=== PATIENT | female | born 2005 | race Caucasian/White ===

== ENCOUNTER 2025-04-09 03:10 | Observation (INO) ==
[2025-04-09] MEDS: SODIUM CHLORIDE 0.9% 1,000 ML IV ONE (03:36)
[2025-04-09 03:47] LABS: Hematocrit (blood only) 39.7 % (37.0-47.0); Hemoglobin 13.2 g/dl (12.0-16.0); Immature Granulocytes # (auto) 0.05 K/uL (0.01-0.20); Immature Granulocytes % (auto) 0.4 %; Mean Corpuscular Hemoglobin 29.7 pg (25.0-34.0); Mean Corpuscular Volume 89.2 fL (80.0-100.0); Platelet Count 269 K/uL (130-400); RDW Standard Deviation 41.4 fL (36.4-46.3); Red Blood Count 4.45 M/uL (4.20-5.40); White Blood Count 13.77 K/ul (4.8-10.8)
--- NOTE | 2025-04-09 03:51 | Emergency Department Note ---
Impression & Plan Acute appendicitis, Right lower quadrant abdominal pain, Leukocytosis ED Provider Note NAME: MED JO AGE: 19 SEX: F : 2005 ARRIVES VIA: Walk-In INFORMANT: Patient ED PROVIDER(S): Sal Prasad MD CHIEF COMPLAINT: Abdominal pain, nausea. PLAN: Disposition: Admit MEDICAL DECISION MAKING: The patient is a 19-year-old woman with past medical history of ulcerative colitis on mesalamine who presents to the emergency department via walk-in for evaluation of acute onset of periumbilical pain that began around 2 AM this morning and became increasingly severe with associated nausea. She reports she did take some acetaminophen and felt some improvement. She reports a minimal dull pain at this time. She reports that she has never had pain with her history of ulcerative colitis rather this was diagnosed due to bloody diarrhea which she has not had. She denies any urinary symptoms. She denies any fevers. She denies any vomiting. She reports she last ate dinner at 2200. On evaluation the patient is in no acute distress, afebrile with heart in 100s and otherwise stable vital signs. She appears clinically dry. She has mild periumbilical discomfort with point tenderness in the right lower quadrant over McBurney's point. There is no guarding or rebound. WBC 13.7 K with neutrophilia but no left shift. H/H and platelets within normal limits. Chemistry without metabolic acidosis. BUNs/creatinine 21 consistent with patient's clinical dry appearance. Electrolytes and LFTs unremarkable. Lipase normal. hCG negative. ESR and CRP are not elevated. UA demonstrates 1+ bacteria and WBCs albeit with epithelial cells and negative nitrites. CT of the abdomen pelvis was performed and demonstrates mildly enlarged appendix measuring approximately 8 mm in diameter with minimal periappendiceal fat stranding and fluid which is suggestive of early/mild appendicitis given the clinical context of the patient's symptoms and neutrophilia. Cefoxitin ordered. Findings reviewed with the patient and her parents over the phone at the bedside. Case discussed with Dr. Wiseman, general surgery on-call. Further management per general surgery. Triage Nursing notes reviewed and agree them. Prior/external medical records reviewed Vital Signs: reviewed Differential diagnosis: Gastroenteritis, food borne illness, infections, appendicitis, diverticulitis, inflammatory bowel disease, obstruction, GI bleed, biliary pathology, volvulus, as well as other pathologies. ER treatment provided: See below. Diagnostics interpreted by me: Cardiac Monitoring: An order for continuous cardiac monitoring was placed and demonstrated normal sinus rhythm, 80 bpm, no ectopy Laboratory studies: See below Imaging studies: See below Consultation(s): Dr. Wiseman, general surgery HPI: Per MDM. ROS: See above HPI for pertinent positives & negatives. A total of 10 systems reviewed and were otherwise negative. VITALS:See Below PHYSICAL EXAMINATION: GENERAL: Awake, alert, in no distress HENT: Normocephalic, atraumatic. Oropharynx with dry mucous membranes and otherwise unremarkable. EYES: Normal conjunctiva. Sclera non-icteric. NECK: Supple. No nuchal rigidity. FROM. No JVD. RESPIRATORY: Clear to auscultation. CARDIAC: Tachycardic rate, normal rhythm. Extremities warm and well perfused. Pulses equal. ABDOMEN: Soft, non-distended. Mild periumbilical discomfort with point tenderness in the right lower quadrant over McBurney's point. There is no guarding or rebound. MUSCULOSKELETAL: Chest examination reveals no tenderness. The back is symmetrical on inspection without obvious abnormality. There is no CVA tenderness to palpation. No joint edema. LOWER EXTREMITIES: Calves are equal size bilaterally and non-tender. No edema. No discoloration. NEURO: Normal sensorium. No sensory or motor deficits noted. SKIN: No rash or jaundice noted. Sal Prasad MD Past Med/Surg History Problem List (Updated 04/10/25 @ 04:22 by Sal Prasad MD) Leukocytosis (Acute) Right lower quadrant abdominal pain (Acute) Acute appendicitis (Acute) Ulcerative colitis Colitis Encounter for pre-operative examination BRBPR (bright red blood per rectum) Medical History Ulcerative colitis Surgical History History of colonoscopy History of placement of ear tubes [place] teeth extracted Family History Denies family history of Crohn's disease Colorectal cancer Ulcerative colitis Social History Smoking Status: Never smoker Second Hand Exposure: No; Do You Dip or Chew Tobacco: No; Hx Alcohol Use: No Hx Substance Use: No Preferred Language: Mohawk Communication Ability: Effective Visual Impairment: No Limitations Hearing Ability: Normal Check Pilot Required: No Beliefs That Will Affect Care: None marital status: Single Current Living Situation: Family Current Living Situation Comment: roommates current occupational status: student current occupation: [employer] Feels Safe at Home: Yes Safety Concerns: Feels Safe At This Time Assistive Devices: None Allergies Allergies Allergy/AdvReac Type Severity Reaction Status Date / Time adhesive Allergy Mild Redness of Verified 04/09/25 08:05 Skin Home Meds Home Medications Medication Instructions Recorded Confirmed norethindrone acetate 1.5 1 tab PO HS 11/15/23 04/09/25 mg-ethinyl estradiol 30 mcg tablet (Aurovela) Previous Rx's Medication Instructions Recorded mesalamine 1.2 gram tablet,delayed 2.4 g (2 x 1.2 gram) PO BID 90 12/29/24 release days #360 tabs Results & Data (ED) Vital Signs Vital Signs - 24 hr 04/09/25 04:30 04/09/25 04:30 04/09/25 04:30 Pulse Rate [Apical] Pulse Rate from SpO2 Sensor 96 H Respiratory Rate Blood Pressure 125/84 125/84 Blood Pressure [Left Arm] Blood Pressure Mean 100 100 Blood Pressure Mean [Left Arm] Pulse Oximetry 98 Oxygen Delivery Method 04/09/25 04:32 04/09/25 04:42 04/09/25 04:51 Pulse Rate [Apical] 84 Pulse Rate from SpO2 Sensor 95 H 84 Respiratory Rate 16 Blood Pressure Blood Pressure [Left Arm] 125/84 Blood Pressure Mean Blood Pressure Mean [Left Arm] 97 Pulse Oximetry 99 98 98 Oxygen Delivery Method Room Air 04/09/25 05:00 04/09/25 05:00 04/09/25 05:09 Pulse Rate [Apical] Pulse Rate from SpO2 Sensor 90 Respiratory Rate Blood Pressure 122/75 122/75 Blood Pressure [Left Arm] Blood Pressure Mean 94 94 Blood Pressure Mean [Left Arm] Pulse Oximetry 98 Oxygen Delivery Method 04/09/25 05:12 04/09/25 05:30 04/09/25 05:33 Pulse Rate [Apical] Pulse Rate from SpO2 Sensor 87 81 Respiratory Rate Blood Pressure 121/81 Blood Pressure [Left Arm] Blood Pressure Mean 93 Blood Pressure Mean [Left Arm] Pulse Oximetry 98 97 Oxygen Delivery Method 04/09/25 05:45 04/09/25 06:00 Pulse Rate [Apical] 80 Pulse Rate from SpO2 Sensor 82 Respiratory Rate 16 Blood Pressure Blood Pressure [Left Arm] 125/80 Blood Pressure Mean Blood Pressure Mean [Left Arm] 95 Pulse Oximetry 99 98 Oxygen Delivery Method Room Air Laboratory Data Attestation: I reviewed the patient's lab results. 04/09/25 03:36 04/09/25 03:36 Lab Results 04/09/25 04/09/25 Range/Units 03:36 04:30 WBC 13.77 H (4.8-10.8) K/ul RBC 4.45 (4.20-5.40) M/uL Hgb 13.2 (12.0-16.0) g/dl Hct 39.7 (37.0-47.0) % MCV 89.2 (80.0-100.0) fL MCH 29.7 (25.0-34.0) pg MCHC 33.2 (32.0-36.0) g/dL RDW Std Deviation 41.4 (36.4-46.3) fL RDW Coeff of Stephen 12.6 (11.5-14.5) % Plt Count 269 (130-400) K/uL MPV 9.2 L (9.4-12.4) fL Immature Gran % (Auto) 0.4 % Neut % (Auto) 74.9 % Lymph % (Auto) 18.5 % [place] % (Auto) 4.5 % Eos % (Auto) 1.5 % Baso % (Auto) 0.2 % Neut # (Auto) 10.32 H (1.40-6.50) K/uL Lymph # (Auto) 2.55 (1.20-3.40) K/uL [place] # (Auto) 0.62 H (0.11-0.59) K/uL Eos # (Auto) 0.20 (0.00-0.50) K/uL Baso # (Auto) 0.03 (0.00-0.20) K/uL Immature Gran # (Auto) 0.05 (0.01-0.20) K/uL ESR 16 (0-20) mm/hr Sodium 138 (136-145) mmol/L Potassium 3.8 (3.5-5.1) mmol/L Chloride 107 (98-107) mmol/L Carbon Dioxide 23 (21-32) mmol/L Anion Gap 8 (3-11) BUN 16 (6-23) mg/dl Creatinine 0.73 (0.6-1.2) mg/dl Est Cr Clr Drug Dosing 110.6 ml/min eGFR 120.66 BUN/Creatinine Ratio 21.9 H (10-20) Glucose 91 (70-99(Fasting)) mg/dl Calcium 8.7 (8.6-10.3) mg/dl Total Bilirubin 0.4 (0.2-1.0) mg/dl AST 14 (13-39) U/L ALT 16 (7-52) U/L Alkaline Phosphatase 40 (34-104) U/L C-Reactive Protein < 0.50 (0-0.5) mg/dl Total Protein 6.9 (6.0-8.3) gm/dl Albumin 4.0 (3.4-5.0) gm/dl Globulin 2.9 (2.5-4.0) gm/dl Albumin/Globulin Ratio 1.4 (0.9-2) Lipase 47 (11-82) U/L HCG, Qual Negative (Negative) Urine Color Yellow Urine Appearance Clear (Clear) Urine pH 5.5 (4.5-7.5) Ur Specific [place] > 1.045 H (1.000-1.030) Urine Protein Negative (Negative) Urine Glucose (UA) Negative (Negative) Urine Ketones Negative (Negative) Urine Blood Negative (Negative) Urine Nitrite Negative (Negative) Urine Bilirubin Negative (Negative) Urine Urobilinogen Negative (Negative) Ur Leukocyte Esterase Trace H (Negative) Urine WBC (Auto) 11-20 H (0-5) /hpf Urine RBC (Auto) 0-2 (0-2) /hpf U Hyaline Cast (Auto) 0-2 (0-2) /lpf U Epithel Cells (Auto) 3-5 H (0-2) /hpf Urine Bacteria (Auto) 1+ H (None Seen) Urine Comment Administered Medications Sodium Chloride (Nss) 1,000 mls @ 50 mls/hr IV .Q20H WILLIAM Stop: 04/12/25 05:59 Last Infusion: 04/09/25 14:57 Dose: 50 mls/hr Documented By: Admin: 04/09/25 13:58 Dose: 125 mls/hr Documented By: Infusion: 04/09/25 13:58 Dose: Infused Documented By: Admin: 04/09/25 06:17 Dose: 125 mls/hr Documented By: GREY Acetaminophen (Ofirmev) 1,000 mg in 100 mls @ 400 mls/hr IV Q8H PRN PRN Reason: Pain Stop: 04/12/25 05:51 Last Infusion: 04/09/25 14:42 Dose: Infused Documented By: Admin: 04/09/25 14:25 Dose: 400 mls/hr Documented By: LANI Mesalamine (Mesalamine 1.2 Gm Tabdr) 2.4 gm PO BID WILLIAM Stop: 05/09/25 20:59 Last Admin: 04/09/25 21:40 Dose: 2.4 gm Documented By: MAYTE Morphine Sulfate (Morphine Sulfate 2 Mg/Ml Carp) 2 mg IV Q3H PRN PRN Reason: Pain (1,2,3,4,5) & Pre PT Stop: 04/23/25 07:53 Last Admin: 04/09/25 21:45 Dose: 2 mg Documented By: MAYTE Morphine Sulfate (Morphine Sulfate 4 Mg/Ml 1 Ml Carp\Vial) 4 mg IV Q3H PRN PRN Reason: Pain (6,7,8,9,10) Stop: 04/23/25 07:53 Last Admin: 04/10/25 02:09 Dose: 4 mg Documented By: WILeonardo Drospirenone/Ethinyl Estradiol 3mg-0. 02mg--Non-Formulary Patient's Own Med 1 each PO HS WILLIAM Stop: 05/09/25 20:59 Last Admin: 04/09/25 21:40 Dose: 1 ea Documented By: MAYTE Oxycodone/Acetaminophen (Oxycodone/Acetaminophen 5mg/325mg Tab) 1 tab PO Q4H PRN PRN Reason: MODERATE Pain (4,5,6) & Pre PT Stop: 04/23/25 07:53 Last Admin: 04/09/25 19:28 Dose: 1 tab Documented By: MAYTE Discontinued Medications Bupivacaine HCl/Epinephrine Bitart (Bupivacaine/Epinephrine 0.5% Mpf 1:200,000 30 Ml Vial) Confirm Administered Dose 30 ml .ROUTE .STK-MED ONE Stop: 04/09/25 11:44 Last Admin: 04/09/25 12:36 Dose: 20 ml Documented By: GEN Sodium Chloride (Nss) 1,000 mls @ 999 mls/hr IV .Q1H1M ONE Stop: 04/09/25 04:22 Last Infusion: 04/09/25 04:33 Dose: Infused Documented By: Admin: 04/09/25 03:36 Dose: 999 mls/hr Documented By: ABHINAV Cefoxitin Sodium (Mefoxin) 2,000 mg in 60 mls @ 100 mls/hr IV NOW STA Stop: 04/09/25 06:25 Last Infusion: 04/09/25 06:58 Dose: Infused Documented By: MARY JANE Admin: 04/09/25 06:17 Dose: 100 mls/hr Documented By: GREY Piperacillin Sod/Tazobactam Sod (Zosyn) 4.5 gm in 100 mls @ 200 mls/hr IV ONE ONE; Protocol Stop: 04/09/25 14:29 Last Admin: 04/09/25 14:59 Dose: Not Given Documented By: LANI Ioversol (Optiray 320 100ml) 100 ml IV ONCE ONE Stop: 04/09/25 04:19 Last Admin: 04/09/25 04:19 Dose: 93 ml Documented By: JANET Mari (Oral Contraceptive - Order Awaiting Action) 1 each N/A QS WILLIAM Stop: 05/09/25 15:59 Last Admin: 04/09/25 15:00 Dose: Not Given Documented By: LANI Mari (Mesalamine Dr/Ec 1.2 Gm Tab - Order Awaiting Action) 1 each N/A QS WILLIAM Stop: 05/09/25 15:59 Last Admin: 04/09/25 16:02 Dose: Not Given Documented By: LANI Imaging Data Radiologist's Impression: Abdomen/Pelvis CT 04/09/25 03:50 EXAM: CT abd pelvis IV con only CLINICAL HISTORY: rlq pain, nausea TECHNIQUE: CT of the abdomen and pelvis was performed with contrast, with the following protocol: axial images with, and reconstructed coronal and sagittal images. One of the following dose reduction techniques was utilized for this exam: Automated exposure control, adjustment of the mA and/or kV according to patient size, and use of iterative reconstruction. COMPARISON: No prior studies available for comparison. FINDINGS: Abdomen: Liver: Normal in size, shape, and density. No focal lesions, cysts, or masses were identified. Hepatic vasculature and biliary ducts are unremarkable. Gallbladder and Biliary System: The gallbladder is normal in size and shape. No wall thickening, pericholecystic fluid, or gallstones were identified. The common bile duct is normal in caliber without dilation. Pancreas: Pancreatic head, body, and tail are visualized and appear normal in size and density. No pancreatic masses or calcifications were noted. The pancreatic duct is not dilated. Spleen: Normal in size, shape, and density. No splenic lesions or masses were identified. Appendix: The appendix is mildly enlarged in size, measuring about 8 mm in diameter, with minimal periappendiceal fat stranding and fluid, without an appendicolith. No evidence of appendiceal abscess or perforation. Kidneys and Adrenal Glands: Both kidneys are normal in size, shape, and position. Cortical thickness is within normal limits. No renal calculi or hydronephrosis. Adrenal glands are unremarkable with no evidence of masses or hyperplasia. Pelvis: Urinary Bladder: Normal in contour and wall thickness. No intraluminal lesions identified. Uterus: Normal in size and contour. No masses or abnormal thickening. Ovaries: Not well visualized but no gross abnormalities noted. Vagina: Normal in contour and wall thickness. Cervix: No evidence of mass or abnormal thickening. Peritoneal and Retroperitoneal Structures: No free fluid or abnormal fluid collections were identified within the abdomen or pelvis. No lymphadenopathy was noted. Bowel: The visualized bowel loops are normal in caliber and appearance. 2 capsule-like structures are noted in the stomach and small bowel No evidence of bowel obstruction or wall thickening. Bones and Soft Tissues: Pelvic bones and soft tissues are unremarkable. No fractures or abnormal masses were identified. IMPRESSION: - The appendix is mildly enlarged in size, measuring about 8 mm in diameter, with minimal periappendiceal fat stranding and fluid. Features may suggest early / mild appendicitis, would recommend clinical and lab (neutrophils) count for further evaluation. Electronically signed by Tom Juan 04-09-2025 05:14 AM Discharge Plan Visit Data Chief Complaint: Abdominal Pain Stated Complaint: ABD PAIN ED Provider: Sal Prasad Discharge Problem: Acute appendicitis, Right lower quadrant abdominal pain, Leukocytosis Patient Disposition: Admitted As Inpatient Condition: Fair Discharge Instructions Interventions: ED Discharge Assessment Last Done: 04/09/25 07:47 Discharge Problem: Acute appendicitis Qualifiers: Acute appendicitis type: unspecified acute appendicitis type Qualified Code(s): K35.80 - Unspecified acute appendicitis Leukocytosis Qualifiers: Leukocytosis type: unspecified Qualified Code(s): D72.829 - Elevated white blood cell count, unspecified
[2025-04-09 04:09] LABS: Alanine Aminotransferase 16 U/L (7-52); Albumin Globulin Ratio 1.4 (0.9-2); Alkaline Phosphatase 40 U/L (34-104); Anion Gap 8 (3-11); Bilirubin,Total 0.4 mg/dl (0.2-1.0); Blood Urea Nitrogen 16 mg/dl (6-23); Calcium 8.7 mg/dl (8.6-10.3); Carbon Dioxide 23 mmol/L (21-32); Chloride 107 mmol/L (98-107); Creatinine Clr Calc Pharmacy 110.6 ml/min; Globulin 2.9 gm/dl (2.5-4.0); Glucose 91 mg/dl (70-99(Fasting)); Lipase 47 U/L (11-82); Potassium 3.8 mmol/L (3.5-5.1); Sodium 138 mmol/L (136-145); Total Protein 6.9 gm/dl (6.0-8.3)
[2025-04-09] MEDS: OPTIRAY 320 100ml IV ONE (04:19)
[2025-04-09 04:23] LABS: Pregnancy Test, Serum Negative (Negative)
[2025-04-09 05:13] LABS: Appearance Urine Clear (Clear); Bacteria Urine Automated 1+ (None Seen); Cast Urine Automated 0-2 /lpf (0-2); Glucose Urine UA Negative (Negative); RBC Urine Automated 0-2 /hpf (0-2)
--- NOTE | 2025-04-09 05:18 | CT Scan Report ---
EXAM: CT abd pelvis IV con only CLINICAL HISTORY: rlq pain, nausea TECHNIQUE: CT of the abdomen and pelvis was performed with contrast, with the following protocol: axial images with, and reconstructed coronal and sagittal images. One of the following dose reduction techniques was utilized for this exam: Automated exposure control, adjustment of the mA and/or kV according to patient size, and use of iterative reconstruction. COMPARISON: No prior studies available for comparison. FINDINGS: Abdomen: Liver: Normal in size, shape, and density. No focal lesions, cysts, or masses were identified. Hepatic vasculature and biliary ducts are unremarkable. Gallbladder and Biliary System: The gallbladder is normal in size and shape. No wall thickening, pericholecystic fluid, or gallstones were identified. The common bile duct is normal in caliber without dilation. Pancreas: Pancreatic head, body, and tail are visualized and appear normal in size and density. No pancreatic masses or calcifications were noted. The pancreatic duct is not dilated. Spleen: Normal in size, shape, and density. No splenic lesions or masses were identified. Appendix: The appendix is mildly enlarged in size, measuring about 8 mm in diameter, with minimal periappendiceal fat stranding and fluid, without an appendicolith. No evidence of appendiceal abscess or perforation. Kidneys and Adrenal Glands: Both kidneys are normal in size, shape, and position. Cortical thickness is within normal limits. No renal calculi or hydronephrosis. Adrenal glands are unremarkable with no evidence of masses or hyperplasia. Pelvis: Urinary Bladder: Normal in contour and wall thickness. No intraluminal lesions identified. Uterus: Normal in size and contour. No masses or abnormal thickening. Ovaries: Not well visualized but no gross abnormalities noted. Vagina: Normal in contour and wall thickness. Cervix: No evidence of mass or abnormal thickening. Peritoneal and Retroperitoneal Structures: No free fluid or abnormal fluid collections were identified within the abdomen or pelvis. No lymphadenopathy was noted. Bowel: The visualized bowel loops are normal in caliber and appearance. 2 capsule-like structures are noted in the stomach and small bowel No evidence of bowel obstruction or wall thickening. Bones and Soft Tissues: Pelvic bones and soft tissues are unremarkable. No fractures or abnormal masses were identified. IMPRESSION: - The appendix is mildly enlarged in size, measuring about 8 mm in diameter, with minimal periappendiceal fat stranding and fluid. Features may suggest early / mild appendicitis, would recommend clinical and lab (neutrophils) count for further evaluation. Electronically signed by Tom Juan 04-09-2025 05:14 AM
[2025-04-09] MEDS ORDERED: ONDANSETRON INJ 2 MG/ML 2 ML VIAL IV PRN ×2 (05:51→07:54)
[2025-04-09] MEDS: cefOXitin 2,000 MG/60 ML BAG IV STA (06:17)
[2025-04-09] MEDS: SODIUM CHLORIDE 0.9% 1,000 ML IV SCH (06:17)
[2025-04-09] MEDS ORDERED: ROCURONIUM BROMIDE 10 MG/ML 5 ML VIAL IV ONE ×2 (08:15→11:44)
[2025-04-09] MEDS ORDERED: DEXAMETHASONE SOD INJ 4 MG/ML VIAL ONE (08:15)
[2025-04-09] MEDS ORDERED: MIDAZOLAM HCL 1 MG/ML 2ML VIAL ONE ×2 (08:15→11:42)
[2025-04-09] MEDS ORDERED: PROPOFOL IV EMULSION 10 MG/ML 20 ML VIAL IV ONE ×2 (08:15→11:43)
[2025-04-09] MEDS ORDERED: LIDOCAINE 2% 2 ML VIAL/AMP(20MG/ML) INFIL ONE ×3 (08:15→11:43)
[2025-04-09] MEDS ORDERED: ONDANSETRON INJ 2 MG/ML 2 ML VIAL ONE (08:15)
--- NOTE | 2025-04-09 09:28 | History & Physical Report ---
Date of Service April 09, 2025 Assessment & Plan (1) Acute appendicitis: Plan: IV abx IVF to OR for lap appendectomy Admission and Anticipated Discharge Date Admission Date: April 09, 2025 History of Present Illness Primary Care Provider: Natalie Dixon This is a 19YO female with past medical history of ulcerative colitis on mesalamine who came to ED with periumbilical pain that now is localized to her RLQ. She has associated nausea but no vomiting. She has never had pain with her UC. She was diagnosed due to bloody diarrhea which she denies. Her WBC 13.[address] scan shows enlarged appendix measuring approximately 8 mm in diameter with minimal periappendiceal fat stranding and fluid which is suggestive of early/mild appendicitis. Allergies Allergy/AdvReac Type Severity Reaction Status Date / Time adhesive Allergy Mild Redness of Verified 04/09/25 08:05 Skin Home Medications Medication Instructions Recorded Confirmed Type norethindrone acetate 1.5 1 tab PO HS 11/15/23 04/09/25 History mg-ethinyl estradiol 30 mcg tablet (Aurovela) mesalamine 1.2 gram tablet,delayed 2.4 g (2 x 1.2 gram) PO BID 90 12/29/2403/31 Rx release days #360 tabs Past Med/Surg History Problem List (Updated 04/09/25 @ 07:20 by Sal Prasad MD) Leukocytosis (Acute) Right lower quadrant abdominal pain (Acute) Acute appendicitis (Acute) Ulcerative colitis Colitis Encounter for pre-operative examination BRBPR (bright red blood per rectum) Medical History Ulcerative colitis Surgical History History of colonoscopy History of placement of ear tubes [place] teeth extracted Family History Denies family history of Crohn's disease Colorectal cancer Ulcerative colitis Social History Smoking Status: Never smoker Second Hand Exposure: No; Do You Dip or Chew Tobacco: No; Hx Alcohol Use: Yes Hx Substance Use: No Preferred Language: Azeri Communication Ability: Effective Visual Impairment: No Limitations Hearing Ability: Normal Research Instructor Required: No Beliefs That Will Affect Care: None marital status: Single Current Living Situation: Other Current Living Situation Comment: roommates current occupational status: student current occupation: [employer] Feels Safe at Home: Yes Assistive Devices: None Review of Systems no fever and no chills no problem reported no problem reported no cough and no dyspnea no chest pain + abdominal pain and + nausea; no vomiting and no change in bowel habits no dysuria no back pain no problem reported no localized weakness and no generalized weakness no behavioral changes no easy bleeding and no easy bruising Physical Exam Constitutional: WD/WN, vitals as above Eyes: no scleral abnormality ENMT: external ear and nose normal, oropharynx normal Neck: trachea midline Respiratory: normal respiratory effort, lungs clear to auscultation Cardiovascular: RRR, no murmur, no edema Gastrointestinal (Abdomen): Inspection/Auscultation: abdomen normal to inspection and normal bowel sounds; abdomen not distended Percussion/Palpation: + abdomen tender, + guarding and abdomen soft; abdomen not rigid Musculoskeletal: Head/Neck/Chest: normocephalic and head atraumatic Skin: no rashes, warm and dry Results & Data Vital Signs (Past 12 Hours) Vital Signs Temp Pulse Pulse Resp BP BP Pulse Ox 04/09/25 08:54 15 04/09/25 08:30 83 16 04/09/25 08:12 74 17 04/09/25 08:05 70 04/09/25 08:00 16 04/09/25 08:00 111/94 04/09/25 08:00 111/94 04/09/25 08:00 111/94 04/09/25 07:51 81 20 04/09/25 07:45 90 15 04/09/25 07:36 72 17 04/09/25 07:21 71 24 04/09/25 07:00 116/76 04/09/25 06:54 99 04/09/25 06:42 99 04/09/25 06:39 99 04/09/25 06:27 99 04/09/25 06:24 125/80 04/09/25 06:24 125/80 04/09/25 06:18 98 04/09/25 06:00 80 16 125/80 98 04/09/25 05:45 99 04/09/25 05:33 97 04/09/25 05:30 121/81 04/09/25 05:12 98 04/09/25 05:09 98 04/09/25 05:00 122/75 04/09/25 05:00 122/75 04/09/25 04:51 98 04/09/25 04:42 98 04/09/25 04:32 84 16 125/84 99 04/09/25 04:30 98 04/09/25 04:30 125/84 04/09/25 04:30 125/84 04/09/25 03:44 75 04/09/25 03:38 100 04/09/25 03:38 79 16 117/78 100 04/09/25 03:15 36.7 C 105 H 20 138/87 99 O2 Del Method 04/09/25 08:54 04/09/25 08:30 04/09/25 08:12 04/09/25 08:05 04/09/25 08:00 04/09/25 08:00 04/09/25 08:00 04/09/25 08:00 04/09/25 07:51 04/09/25 07:45 04/09/25 07:36 04/09/25 07:21 04/09/25 07:00 04/09/25 06:54 04/09/25 06:42 04/09/25 06:39 04/09/25 06:27 04/09/25 06:24 04/09/25 06:24 04/09/25 06:18 04/09/25 06:00 Room Air 04/09/25 05:45 04/09/25 05:33 04/09/25 05:30 04/09/25 05:12 04/09/25 05:09 04/09/25 05:00 04/09/25 05:00 04/09/25 04:51 04/09/25 04:42 04/09/25 04:32 Room Air 04/09/25 04:30 04/09/25 04:30 04/09/25 04:30 04/09/25 03:44 04/09/25 03:38 Room Air 04/09/25 03:38 Room Air 04/09/25 03:15 Room Air Diagnostic Findings EXAM: CT abd pelvis IV con only ADDENDUM: The results were sent successfully via fax at [phone] at 4:30 AM LIFE ENRICHMENT DIRECTOR, 04/09/2025. Electronically signed by Tom Juan 04-09-2025 05:31 AM ADDENDUM END EXAM: CT abd pelvis IV con only CLINICAL HISTORY: rlq pain, nausea TECHNIQUE: CT of the abdomen and pelvis was performed with contrast, with the following protocol: axial images with, and reconstructed coronal and sagittal images. One of the following dose reduction techniques was utilized for this exam: Automated exposure control, adjustment of the mA and/or kV according to patient size, and use of iterative reconstruction. COMPARISON: No prior studies available for comparison. FINDINGS: Abdomen: Liver: Normal in size, shape, and density. No focal lesions, cysts, or masses were identified. Hepatic vasculature and biliary ducts are unremarkable. Gallbladder and Biliary System: The gallbladder is normal in size and shape. No wall thickening, pericholecystic fluid, or gallstones were identified. The common bile duct is normal in caliber without dilation. Pancreas: Pancreatic head, body, and tail are visualized and appear normal in size and density. No pancreatic masses or calcifications were noted. The pancreatic duct is not dilated. Spleen: Normal in size, shape, and density. No splenic lesions or masses were identified. Appendix: The appendix is mildly enlarged in size, measuring about 8 mm in diameter, with minimal periappendiceal fat stranding and fluid, without an appendicolith. No evidence of appendiceal abscess or perforation. Kidneys and Adrenal Glands: Both kidneys are normal in size, shape, and position. Cortical thickness is within normal limits. No renal calculi or hydronephrosis. Adrenal glands are unremarkable with no evidence of masses or hyperplasia. Pelvis: Urinary Bladder: Normal in contour and wall thickness. No intraluminal lesions identified. Uterus: Normal in size and contour. No masses or abnormal thickening. Ovaries: Not well visualized but no gross abnormalities noted. Vagina: Normal in contour and wall thickness. Cervix: No evidence of mass or abnormal thickening. Peritoneal and Retroperitoneal Structures: No free fluid or abnormal fluid collections were identified within the abdomen or pelvis. No lymphadenopathy was noted. Bowel: The visualized bowel loops are normal in caliber and appearance. 2 capsule-like structures are noted in the stomach and small bowel No evidence of bowel obstruction or wall thickening. Bones and Soft Tissues: Pelvic bones and soft tissues are unremarkable. No fractures or abnormal masses were identified. IMPRESSION: - The appendix is mildly enlarged in size, measuring about 8 mm in diameter, with minimal periappendiceal fat stranding and fluid. Features may suggest early / mild appendicitis, would recommend clinical and lab (neutrophils) count for further evaluation. Code Status & VTE Plan VTE Prophylaxis Plan VTE Prophylaxis will be ordered: Yes
[2025-04-09] MEDS ORDERED: ATROPINE SULFATE 0.1 MG/ML 10ML SYR IV PRN (11:36)
[2025-04-09] MEDS ORDERED: HYDROmorphone INJ 2 MG/ML SYR/VIAL IV PRN (11:36)
[2025-04-09] MEDS ORDERED: PROMETHAZINE HCL 6.25 MG in SODIUM CHLORIDE 0.9% 50 ML IV PRN (11:36)
--- NOTE | 2025-04-09 11:48 | Anesthesiology Consultation ---
Date of Service April 09, 2025 Assessment & Plan ASA ASA2 Proposed Anesthesia Anesthesia Type: General Risk / Benefits Reviewed With: PT / POA / Parent / Guardian, Accepts Plan and Informed Consent Obtained History Surgery Operation Date: 04/09/25 08:00 Proposed Procedures p Laparoscopic Appendectomy - Kevin Wiseman MD Height/Weight Height: 5 ft 8 in Weight: 57 kg Allergies Allergy/AdvReac Type Severity Reaction Status Date / Time adhesive Allergy Mild Redness of Verified 04/09/25 08:05 Skin Medications Home Medications Medication Instructions Recorded Confirmed Last Taken norethindrone acetate 1.5 1 tab PO HS 11/15/23 04/09/25 04/08/25 mg-ethinyl estradiol 30 mcg tablet (Aurovela) mesalamine 1.2 gram tablet,delayed 2.4 g (2 x 1.2 gram) PO BID 90 12/29/24 04/09/25 04/08/25 release days #360 tabs Active Medications Generic Name Dose Route Start Last Admin Trade Name Freq PRN Reason Stop Dose Admin Sodium Chloride 1,000 mls @ 125 mls/hr 04/09/25 06:00 04/09/25 06:17 Nss IV 04/12/25 05:59 125 mls/hr .Q8H WILLIAM Administration NPO Date Last Intake of Fluids: 04/08/25 Time Last Intake of Fluids: 23:00 Date Last Intake of Solids: 04/08/25 Time Last Intake of Solids: 22:00 Past Medical History Medical History Ulcerative colitis Exercise / Class Metabolic Activity II 4-5 Yardwork/Stairs/Walk up hill Past Family History Family History Denies family history of Crohn's disease Colorectal cancer Ulcerative colitis Past Surgical History Surgical History History of colonoscopy History of placement of ear tubes [place] teeth extracted Past Anesthesia History No Hx of Anesthesia Complications and No Family Hx of Anesthesia Complications History of PONV No Hx of PONV and No Hx of Motion Sickness Social History Smoking Status: Never smoker Do You Dip or Chew Tobacco: No Hx Alcohol Use: No alcohol intake frequency: a few times a month Hx Substance Use: No substance use type: does not use Physical Exam Vital Signs Last Vital Signs Temp 37.2 C 04/09/25 11:38 Pulse 86 04/09/25 11:38 Resp 16 04/09/25 11:38 BP 111/80 04/09/25 11:38 Pulse Ox 100 04/09/25 11:38 O2 Del Method Room Air 04/09/25 11:38 Constitutional no acute distress ENMT Mouth: no dentition abnormality Thyromental Distance: > or= 3.5 Finger Breadths Mallampati Class: II Neck normal visual inspection Respiratory normal respiratory effort; no respiratory distress Auscultation: lungs clear to auscultation bilaterally Cardiovascular Rate/Rhythm: regular rate and regular rhythm Heart Sounds: no murmur Musculoskeletal Spine: normal cervical ROM Psychiatric Orientation: alert and oriented x 3 Testing Laboratory Results 04/09/25 03:36 04/09/25 03:36 Urine Color Yellow 04/09/25 04:30 Urine Appearance Clear (Clear) 04/09/25 04:30 Urine pH 5.5 (4.5-7.5) 04/09/25 04:30 Ur Specific [place] > 1.045 (1.000-1.030) H 04/09/25 04:30 Urine Protein Negative (Negative) 04/09/25 04:30 Urine Glucose (UA) Negative (Negative) 04/09/25 04:30 Urine Ketones Negative (Negative) 04/09/25 04:30 Urine Nitrite Negative (Negative) 04/09/25 04:30 Ur Leukocyte Esterase Trace (Negative) H 04/09/25 04:30 Urine WBC (Auto) 11-20 /hpf (0-5) H 04/09/25 04:30 Urine RBC (Auto) 0-2 /hpf (0-2) 04/09/25 04:30 U Hyaline Cast (Auto) 0-2 /lpf (0-2) 04/09/25 04:30 U Epithel Cells (Auto) 3-5 /hpf (0-2) H 04/09/25 04:30 Urine Bacteria (Auto) 1+ (None Seen) H 04/09/25 04:30 Day of Procedure Evaluation. Date of Surgery April 09, 2025 Height/Weight Height: 5 ft 8 in Weight: 57 kg Vital Signs Last Vital Signs Temp 37.2 C 04/09/25 11:38 Pulse 86 04/09/25 11:38 Resp 16 04/09/25 11:38 BP 111/80 04/09/25 11:38 Pulse Ox 100 04/09/25 11:38 O2 Del Method Room Air 04/09/25 11:38 Allergies Allergy/AdvReac Type Severity Reaction Status Date / Time adhesive Allergy Mild Redness of Verified 04/09/25 08:05 Skin Medications Home Medications Medication Instructions Recorded Confirmed Last Taken norethindrone acetate 1.5 1 tab PO HS 11/15/23 04/09/25 04/08/25 mg-ethinyl estradiol 30 mcg tablet (Aurovela) mesalamine 1.2 gram tablet,delayed 2.4 g (2 x 1.2 gram) PO BID 12/29/24 04/09/25 04/08/25 release days #360 tabs Active Medications Generic Name Dose Route Start Last Admin Trade Name Freq PRN Reason Stop Dose Admin Sodium Chloride 1,000 mls @ 125 mls/hr 04/09/25 06:00 04/09/25 06:17 Nss IV 04/12/25 05:59 125 mls/hr .Q8H WILLIAM Administration Past Anesthesia History No Hx of Anesthesia Complications and No Family Hx of Anesthesia Complications History of PONV No Hx of PONV and No Hx of Motion Sickness NPO Date Last Intake of Fluids: 04/08/25 Time Last Intake of Fluids: 23:00 Date Last Intake of Solids: 04/08/25 Time Last Intake of Solids: 22:00 Home Medications Home Medications Medication Instructions Recorded Confirmed Last Taken norethindrone acetate 1.5 1 tab PO 11/15/23 04/09/25 04/08/25 mg-ethinyl estradiol 30 mcg tablet (Aurovela) mesalamine 1.2 gram tablet,delayed 2.4 g (2 x 1.2 gram) PO BID 12/29/24 04/09/25 04/08/25 release days #360 tabs Active Medications Generic Name Dose Route Start Last Admin Trade Name Freq PRN Reason Stop Dose Admin Sodium Chloride 1,000 mls @ 125 mls/hr 04/09/25 06:00 04/09/25 06:17 Nss IV 04/12/25 05:59 125 mls/hr .Q8H WILLIAM Administration Exercise / Class Metabolic Activity Metabolic Activity: II 4-5 Yardwork/Stairs/Walk up hill Physical Exam Constitutional: no acute distress Mouth: no dentition abnormality Thyromental Distance: > or= 3.5 Finger Breadths Mallampati Class: II Neck: + visual inspection normal Respiratory: + respiratory effort normal and + clear to auscultation bilaterally; no respiratory distress Cardiovascular: + regular rate and + regular rhythm; no murmur Musculoskeletal: no limited cervical ROM Psychiatric: + alert and + oriented x 3 ASA ASA2 Proposed Anesthesia Proposed Anesthesia: General Risk / Benefits Reviewed With: PT / POA / Parent / Guardian, Accepts Plan and Informed Consent Obtained
[2025-04-09] MEDS ORDERED: SUGAMMADEX SODIUM 200 MG/2 ML VIAL IV ONE (12:30)
[2025-04-09] MEDS ORDERED: KETOROLAC 30 MG/ML VIAL ONE (12:33)
[2025-04-09] MEDS: BUPIVACAINE/EPINEPHRINE 0.5% MPF 1:200,000 30 ML VIAL ONE (12:36)
--- NOTE | 2025-04-09 12:43 | Operative Report ---
Post Operative Report Pre & Post Diagnosis Operation Date: 04/09/25 08:00 Acute appendicitis I identified the patient and participated in the time-out.: Yes Procedure Operation Date: 04/09/25 08:00 Laparoscopic appendectomy Surgeon Kevin Wiseman MD Candy Roller Mirela Amato PA-C Estimated Blood Loss 3 Findings Consistent with Post-Op Diagnosis Acute appendicitis Specimens Appendix the pathology Drains None Anesthesia Type General Complications None Indications This is a 19-year-old female who was admitted through the ED with a workup for abdominal pain. She has a history of ulcerative colitis but has never had symptoms. CT scan was done which shows an early appendicitis. She was placed on IV fluids IV antibiotics and be taken the OR for laparoscopic appendectomy. We discussed the risks with her in detail. Description of Procedure The patient was taken to the OR and underwent excellent general anesthesia. Their abdomen was prepped and draped in normal sterile fashion. A transverse supraumbilical incision was made, towel clamps were used to create tension on the abdominal wall as an 5 port was placed in the supraumbilical position, inserted with visualization with some difficulty into the peritoneal cavity. Good pneumoperitoneum was achieved to about 15 mmHg pressure. Once this was done, a visualized 12 mm left lower quadrant port and a 5mm suprapubic port were placed in normal fashion. Patient was then placed in head down and rolled to the left. A good diagnostic lap was performed. They had obvious acute appendicitis. A grasper was used to grasp the tip of the appendix. The mesoappendix was splayed open and a harmonic scalpel was used to take down the mesoappendix. The base of the appendix was identified and an Endo INDY stapler was used to transect the appendix at its base. The appendix was brought out the left lower quadrant port. The appendix was sent for pathologic evaluation. The pneumoperitoneum was re-established after the 12 mm port was replaced. Saline was then used to irrigate the abdomen. There was no active bleeding nor any other abnormalities noted in the abdomen. The patient was then placed back in neutral position, the ports were removed and the pneumoperitoneum decompressed. The 12mm port fascia was then closed using a 0 Vicryl. The skin was then anesthetized with 0.5% Marcaine with epinephrine local. Interrupted Vicryl is used to close the skin. Dermabond was used to reinforce the incisions. Sterile dressings were applied. The patient tolerated procedure without complications was sent to the postop recovery period of observation. They will be sent to the floor for the rest of their care. Mirela Amato PA-C was present and participated in the entire procedure. She was integral in skin closure, retraction, and camera manipulation. There was no qualified resident available to assist. I attest to the content of the Intraoperative Record and any orders documented therein. Any exceptions are noted below.
--- NOTE | 2025-04-09 13:17 | Anesthesiology Progress Note ---
Date of Service April 09, 2025 Anesthesia Post Procedure Vital Signs Vital Signs: Temp Pulse Pulse Resp BP BP BP 04/09/25 13:14 36.5 C 73 18 113/80 04/09/25 13:05 79 14 109/64 04/09/25 12:55 82 14 110/67 04/09/25 12:49 36.9 C 82 15 110/74 04/09/25 11:38 37.2 C 86 16 111/80 04/09/25 11:16 37.0 C 88 14 134/93 04/09/25 10:41 15 04/09/25 08:54 15 04/09/25 08:30 83 16 04/09/25 08:12 74 17 04/09/25 08:05 70 04/09/25 08:00 16 04/09/25 08:00 111/94 04/09/25 08:00 111/94 04/09/25 08:00 111/94 04/09/25 07:51 81 20 04/09/25 07:45 90 15 04/09/25 07:36 72 17 04/09/25 07:21 71 24 04/09/25 07:00 116/76 04/09/25 06:54 04/09/25 06:42 04/09/25 06:39 04/09/25 06:27 04/09/25 06:24 125/80 04/09/25 06:24 125/80 04/09/25 06:18 04/09/25 06:00 80 16 125/80 04/09/25 05:45 04/09/25 05:33 04/09/25 05:30 121/81 04/09/25 05:12 04/09/25 05:09 04/09/25 05:00 122/75 04/09/25 05:00 122/75 04/09/25 04:51 04/09/25 04:42 04/09/25 04:32 84 16 125/84 04/09/25 04:30 04/09/25 04:30 125/84 04/09/25 04:30 125/84 04/09/25 03:44 75 04/09/25 03:38 04/09/25 03:38 79 16 117/78 04/09/25 03:15 36.7 C 105 H 20 138/87 Pulse Ox O2 Del Method O2 Flow Rate 04/09/25 13:14 96 Room Air 04/09/25 13:05 100 Oxymask 4 04/09/25 12:55 100 Oxymask 6 04/09/25 12:49 98 Oxymask 10 04/09/25 11:38 100 Room Air 04/09/25 11:16 98 Room Air 04/09/25 10:41 04/09/25 08:54 04/09/25 08:30 04/09/25 08:12 04/09/25 08:05 04/09/25 08:00 04/09/25 08:00 04/09/25 08:00 04/09/25 08:00 04/09/25 07:51 04/09/25 07:45 04/09/25 07:36 04/09/25 07:21 04/09/25 07:00 04/09/25 06:54 99 04/09/25 06:42 99 04/09/25 06:39 99 04/09/25 06:27 99 04/09/25 06:24 04/09/25 06:24 04/09/25 06:18 98 04/09/25 06:00 98 Room Air 04/09/25 05:45 99 04/09/25 05:33 97 04/09/25 05:30 04/09/25 05:12 98 04/09/25 05:09 98 04/09/25 05:00 04/09/25 05:00 04/09/25 04:51 98 04/09/25 04:42 98 04/09/25 04:32 99 Room Air 04/09/25 04:30 98 04/09/25 04:30 04/09/25 04:30 04/09/25 03:44 04/09/25 03:38 100 Room Air 04/09/25 03:38 100 Room Air 04/09/25 03:15 99 Room Air Pain Intensity Abdomen: Pain Intensity: 2 Transfer of Care Handoff Completed per policy Notes Mental Status: alert / awake / arousable and participated in evaluation Nausea / Vomiting: adequately controlled Pain: adequately controlled Airway Patency, RR, SpO2: stable & adequate BP & HR: stable & adequate Hydration State: stable & adequate Anesthetic Complications: no major complications apparent and Pt Satisfied with anesthetic care
[2025-04-09] MEDS: ACETAMINOPHEN 1,000 MG/100 ML VIAL IV PRN (14:25)
[2025-04-09] MEDS: PIPERACILLIN/TAZOBACTAM 4.5 GM/100 ML BAG IV ONE (14:59)
[2025-04-09] MEDS: [UNRECOGNIZED DRUG - OTHER] SCH (15:00)
[2025-04-09] MEDS ORDERED: PIPERACILLIN/TAZOBACTAM 4.5 GM/100 ML BAG IV SCH (20:00)
[2025-04-09] MEDS: DROSPIRENONE PO SCH (21:40)
[2025-04-09] MEDS: ETHINYL ESTRADIOL PO SCH (21:40)
[2025-04-09] MEDS: MESALAMINE 1.2 GM TABDR PO SCH (21:40)
[2025-04-09] MEDS: MoRPHine SULFATE 2 MG/ML CARP IV PRN (21:45)
[2025-04-10] MEDS: MoRPHine SULFATE 4 MG/ML 1 ML CARP\\VIAL IV PRN (02:09)
[2025-04-10] MEDS ORDERED: SIMETHICONE 80 MG CHEW PO PRN (04:12)
[2025-04-10 07:21] VITALS: BP 99/62; PULSE 69; RESP 18; TEMP 98.6; O2SAT 100
--- NOTE | 2025-04-10 08:55 | Discharge Summary ---
Date of Service April 10, 2025 Admission HPI Per Admitting Provider This is a 19YO female with past medical history of ulcerative colitis on mesalamine who came to ED with periumbilical pain that now is localized to her RLQ. She has associated nausea but no vomiting. She has never had pain with her UC. She was diagnosed due to bloody diarrhea which she denies. Her WBC 13.[address] scan shows enlarged appendix measuring approximately 8 mm in diameter with minimal periappendiceal fat stranding and fluid which is suggestive of early/mild appendicitis. Principal Diagnosis acute appendicitis Discharge Exam Constitutional WD/WN, vitals as above cooperative and comfortable; no acute distress and not ill appearing Respiratory normal respiratory effort; no respiratory distress, no labored breathing and no retractions Gastrointestinal (Abdomen) Inspection/Auscultation: abdomen normal to inspection and + abdominal surgical incision (c/d/i with dermabond); abdomen not distended Percussion/Palpation: + abdomen tender (at incision sites) and abdomen soft; no guarding and abdomen not rigid Skin no rashes, warm and dry Psychiatric A+Ox3, euthymic affect Discharge Data Allergies Allergy/AdvReac Type Severity Reaction Status Date / Time adhesive Allergy Mild Redness of Verified 04/09/25 08:05 Skin Consultations 04/09/25 06:07 ED Decision to Admit Stat Procedures Performed Operation Date: 04/09/25 08:00 Actual Procedures p Laparoscopic Appendectomy(Not Applicable) - Kevin Wiseman MD Ordered Studies 04/09/25 03:50 CT abd pelvis IV con only Stat Hospital Course (1) Acute appendicitis: Patient taken to operating room for laparoscopic appendectomy by Dr. Wiseman on 04/09/2025. Found to have uncomplicated appendicitis. Tolerated procedure without difficulty and transferred to med/surg floor for postop care. Tolerated advanced diet, pain controlled with oral and IV medication, and ambulating and urinating without difficulty. Patient was discharged home on POD # 1 in stable condition. Total Time Total Time Spent Total Time Spent (In Minutes): 30 Total Time Includes: Examination of the Patient, Discharge Planning and Medication Reconciliation Discharge Plan Discharge Items Patient Disposition: Home - Self-Care Reason For Visit: APPENDICITIES Discharge Diagnosis: Acute appendicitis Condition on Discharge: Good Activity: Per Instructions section Non-emergency contact: Primary Care Provider and Surgeon Call non-emergency contact if: you have any medication questions, your pain is not controlled, your pain is worsening, you have a fever, your temperature is above 101, your wound has increased redness, your wound has increased drainage and your wound pain has increased Follow-up/Referrals: Kevin Wiseman MD [Physician] - Natalie Klein PA-C [Primary Care Provider] - Diet: Regular Addtl Attending Provider Instructions: Post-Surgical ~Discharge Instructions Activity Recommendations: - lifting limitation: (20 pounds for 2-3 weeks), - exercise/sex/sports limit: (nonstrenuous for 2 weeks), - driving or machine use limit: (none for at least 3 days, no driving while taking narcotic pain medication), - Shower/bathe limit: (may shower , no submerging incisions underwater for 2 weeks) Diet: - Resume previous diet SPECIAL CARE INSTRUCTIONS: - May shower. Let water run over area and pat dry. - Leave surgical glue on incisions, this will fall off on its own. Do not pick at the glue as this can cause infection. - Call the surgeon's office with any questions or concerns - - (ex. temperature higher than 101 degrees F, excessive bleeding or pain). MEDICATIONS: - Resume previous medications unless instructed otherwise by your surgeon. - May take extra strength Tylenol and Ibuprofen as needed for mild to moderate pain -650 mg Tylenol every 6 hours as needed - Ibuprofen 600 mg every 6 hours as needed (take with food) - Percocet 1 every 6 hours, as needed for moderate to severe pain - Each tablet of Percocet has 325 mg of Tylenol in each tablet. If taking with Tylenol, do not exceed 3,000 mg of Tylenol in 24 hour period. - You could alternate Percocet with Tylenol but do not take 2 tablets of Percocet when alternating with Tylenol. - Recommend daily stool softener (Colace) while taking narcotic pain medication to prevent constipation or straining. Drink plenty of water daily. FOLLOW UP VISIT: - If not already scheduled, please call the office to schedule a two week follow-up appointment. Office number Pending Studies at Discharge: Yes (pathology) Stand-Alone Forms: [employer], Work/School Release, Smoking Cessation Medications and DC Order Prescriptions: New oxycodone-acetaminophen [Percocet] 5-325 mg tablet 1 tab PO Q6H PRN (Reason: pain) Qty: 12 0RF Continued norethindrone ac-eth estradiol [Aurovela .02/27 (21)] 1.5-30 mg-mcg tablet 1 tab PO HS mesalamine 1.2 gram tablet,delayed release (DR/EC) 2.4 g PO BID 90 Days Qty: 360 3RF Discharge Orders: Discharge Order (Routine); Ordered 04/10/25 Ordered By: Mirela Perez/Other Patient Handouts: Appendectomy, What Is Appendicitis?, Surgery for Appendicitis Admission Data Admit Date/Time: 04/09/25 06:03 Attending Provider: Kevin Wiseman Admit Provider: Kevin Wiseman Primary Care Provider: Natalie Klein Other Providers: Kevin Wiseman Other Interventions: Discharge Summary Assessment (RN) Last Done: 04/10/25 09:13
[2025-04-10] MEDS: ACETAMINOPHEN 325 MG TAB PO PRN (10:01)
== END 2025-04-10 10:37 | disposition home or self-care (01) ==
LOC: PACUINP 03:10 → ED 03:10 → EDINP 03:10 → 3E 13:39